=== PATIENT | male | born 1990 | race Caucasian/White ===

== ENCOUNTER 2023-10-16 01:01 | Inpatient (IN) | payer SELFPAY ==
[2023-10-16] MEDS ORDERED: diazePAM CARPU-JECT 10 MG/2 ML DISP.SYRIN ONE ×2 (02:38→03:00)
[2023-10-16] MEDS: diazePAM CARPU-JECT 10 MG/2 ML DISP.SYRIN IVPUSH ONE ×2 (02:38→02:59)
[2023-10-16 02:42] LABS: HEMATOCRIT 39.9 % (35.4-49); HEMOGLOBIN 13.8 GM/dL (11.7-16.9); MCH 34.6 pg (25.7-33.7); MCHC 34.7 g/dl (32.0-35.9); MEAN CELL VOLUME 99.7 fl (80-96); PLATELET COUNT 157 10^3/uL (134-434); RDW 15.7 % (11.9-15.9)
[2023-10-16 02:54] LABS: INR 0.95 (0.83-1.09); PROTHROMBIN TIME (PATIENT) 10.9 SEC (9.7-13.0)
[2023-10-16 02:56] LABS: ACTIVATED PTT 24.9 SECONDS (25.2-36.5)
[2023-10-16 03:00] LABS: POTASSIUM 3.2 mmol/L (3.5-5.1)
[2023-10-16 03:02] LABS: CALCIUM 9.4 mg/dL (8.5-10.1)
[2023-10-16 03:03] LABS: ALBUMIN 4.5 g/dl (3.4-5.0); BLOOD UREA NITROGEN 7.7 mg/dL (7-18)
[2023-10-16 03:06] LABS: CREATININE 0.9 mg/dL (0.55-1.3)
[2023-10-16 03:07] LABS: BILIRUBIN,TOTAL 1.1 mg/dL (0.2-1); TOT PROT 9.2 g/dl (6.4-8.2)
[2023-10-16] MEDS: FOLIC ACID INJECTION - 1 MG, THIAMINE HCL 100 MG, MULTIVIT INJECTION ADULT 10 ML in SOD... IVPB ONE (03:25)
[2023-10-16 03:35] LABS: LACTIC ACID 14.8 mmol/L (0.4-2.0)
[2023-10-16] MEDS: LACTATED RINGERS SOLUTION 1000 ML INFUS.BAG IV ONE (07:36)
[2023-10-16 07:57] LABS: BASO % 0.6 % (0-2.0); HEMATOCRIT 34.3 % (35.4-49); HEMOGLOBIN 12.2 GM/dL (11.7-16.9); LYMPH % 11.6 % (8-40); MCH 34.2 pg (25.7-33.7); MCHC 35.5 g/dl (32.0-35.9); MEAN CELL VOLUME 96.4 fl (80-96); MEAN PLT VOLUME 7.8 fl (7.5-11.1); NEUT % 78.8 % (42.8-82.8); PLATELET COUNT 114 10^3/uL (134-434); RBC 3.56 M/mm3 (4.00-5.60); RDW 15.6 % (11.9-15.9); WHITE BLOOD COUNT 5.8 K/mm3 (4.0-10.0)
[2023-10-16] MEDS: THIAMINE HCL 200 MG/2 ML VIAL IVPB SCH ×2 (08:08→21:24)
[2023-10-16 08:16] LABS: POTASSIUM 3.3 mmol/L (3.5-5.1)
[2023-10-16 08:18] LABS: CALCIUM 8.5 mg/dL (8.5-10.1)
[2023-10-16 08:19] LABS: ALBUMIN 3.7 g/dl (3.4-5.0); BLOOD UREA NITROGEN 5.2 mg/dL (7-18)
[2023-10-16 08:22] LABS: CREATININE 0.4 mg/dL (0.55-1.3)
[2023-10-16 08:23] LABS: BILIRUBIN,TOTAL 1.2 mg/dL (0.2-1); TOT PROT 7.4 g/dl (6.4-8.2)
[2023-10-16 08:53] LABS: METHADONE, UR NEGATIVE (NEGATIVE); OPIATES, URI NEGATIVE (NEGATIVE); URINE BARBITURATES NEGATIVE (NEGATIVE)
[2023-10-16 08:54] LABS: PHENCYCLIDINE,URINE NEGATIVE (NEGATIVE)
[2023-10-16 08:56] LABS: COCAINE, UR NEGATIVE (NEGATIVE); URINE AMPHETAMINES NEGATIVE (NEGATIVE); URINE BENZODIAZEPINES POSITIVE (NEGATIVE)
[2023-10-16] MEDS: KCL 10 MEQ IVPB 10 MEQ/100 ML INFUS.BAG IVPB SCH (09:05)
[2023-10-16] MEDS: HEPARIN NA (PORCINE) 5,000 UNITS/ML 1ML VIAL SQ SCH ×2 (10:00→21:24)
[2023-10-16 10:57] VITALS: BMI 19.9
[2023-10-16] MEDS ORDERED: ALBUTEROL SO4 2.5/IPRATROPIUM 0.5 INH SOL 3 ML VIAL.NEB. NEB PRN (11:32)
[2023-10-16 14:56] LABS: ALBUMIN 3.8 g/dl (3.4-5.0)
[2023-10-16 14:59] LABS: BILIRUBIN,DIRECT 0.5 mg/dL (0.0-0.2)
[2023-10-16 15:01] LABS: BILIRUBIN,TOTAL 1.3 mg/dL (0.2-1); TOT PROT 7.7 g/dl (6.4-8.2)
[2023-10-16] MEDS ORDERED: LORazepam 1 MG TABLET PO PRN (15:10)
[2023-10-16] MEDS: POTASSIUM CHLORIDE ORAL LIQUID 20 MEQ/15 ML PO ONE (16:25)
[2023-10-16] MEDS: LORazepam 1 MG TABLET PO ONE (16:27)
[2023-10-16] MEDS: MUPIROCIN 2% TOPICAL OINTMENT FOR DECOLONIZATION NS SCH (16:28)
[2023-10-16] MEDS ORDERED: LORazepam 0.5 MG TABLET ONE (17:18)
[2023-10-16] MEDS: LORazepam 1 MG TABLET PO SCH (17:25)
[2023-10-16] MEDS ORDERED: MUPIROCIN 2% TOPICAL OINTMENT FOR DECOLONIZATION NS SCH (22:00)
[2023-10-16] MEDS ORDERED: CHLORHEXIDINE GLUCONATE 4% CLEANSER FOR DECOLONIZATION TP SCH (22:00)
[2023-10-17 05:53] LABS: INR 0.92 (0.83-1.09); PROTHROMBIN TIME (PATIENT) 10.4 SEC (9.7-13.0)
[2023-10-17 05:56] LABS: ACTIVATED PTT 29.6 SECONDS (25.2-36.5)
[2023-10-17 09:27] LABS: HEMATOCRIT 37.4 % (35.4-49); HEMOGLOBIN 12.9 GM/dL (11.7-16.9); MCH 33.8 pg (25.7-33.7); MCHC 34.4 g/dl (32.0-35.9); MEAN CELL VOLUME 98.1 fl (80-96); MEAN PLT VOLUME 8.9 fl (7.5-11.1); PLATELET COUNT 123 10^3/uL (134-434); RBC 3.81 M/mm3 (4.00-5.60); RDW 15.5 % (11.9-15.9); WHITE BLOOD COUNT 4.2 K/mm3 (4.0-10.0)
[2023-10-17 09:34] LABS: BASO % 0.8 % (0-2.0); EOS % 1.4 % (0-4.5); HEMATOCRIT 37.1 % (35.4-49); HEMOGLOBIN 12.7 GM/dL (11.7-16.9); LYMPH % 16.5 % (8-40); MCH 33.8 pg (25.7-33.7); MCHC 34.3 g/dl (32.0-35.9); MEAN CELL VOLUME 98.5 fl (80-96); MEAN PLT VOLUME 8.8 fl (7.5-11.1); MONO % 10.2 % (3.8-10.2); NEUT % 71.1 % (42.8-82.8); PLATELET COUNT 125 10^3/uL (134-434); RBC 3.76 M/mm3 (4.00-5.60); RDW 15.3 % (11.9-15.9); WHITE BLOOD COUNT 4.5 K/mm3 (4.0-10.0)
[2023-10-17 09:46] LABS: POTASSIUM 3.4 mmol/L (3.5-5.1)
[2023-10-17 10:01] LABS: ALBUMIN 3.7 g/dl (3.4-5.0); CALCIUM 8.7 mg/dL (8.5-10.1)
[2023-10-17 10:02] LABS: BLOOD UREA NITROGEN 11.7 mg/dL (7-18); MAGNESIUM 2.3 mg/dL (1.8-2.4)
[2023-10-17 10:05] LABS: CREATININE 0.5 mg/dL (0.55-1.3); PHOSPHOROUS 3.2 mg/dL (2.5-4.9)
[2023-10-17 10:06] LABS: BILIRUBIN,TOTAL 1.3 mg/dL (0.2-1); TOT PROT 7.7 g/dl (6.4-8.2)
[2023-10-17] MEDS: POTASSIUM CHLORIDE ORAL LIQUID 20 MEQ/15 ML PO ONE (18:18)
[2023-10-18] MEDS: LORazepam 1 MG TABLET PO SCH (05:07)
[2023-10-18 06:44] VITALS: RESP 18
[2023-10-18 11:00] LABS: BASO % 0.8 % (0-2.0); EOS % 1.8 % (0-4.5); HEMATOCRIT 35.2 % (35.4-49); HEMOGLOBIN 12.5 GM/dL (11.7-16.9); LYMPH % 15.9 % (8-40); MCH 34.4 pg (25.7-33.7); MCHC 35.5 g/dl (32.0-35.9); MEAN CELL VOLUME 96.8 fl (80-96); MEAN PLT VOLUME 8.6 fl (7.5-11.1); MONO % 11.9 % (3.8-10.2); NEUT % 69.6 % (42.8-82.8); PLATELET COUNT 146 10^3/uL (134-434); RBC 3.63 M/mm3 (4.00-5.60); RDW 15.3 % (11.9-15.9); WHITE BLOOD COUNT 4.6 K/mm3 (4.0-10.0)
[2023-10-18 11:21] LABS: POTASSIUM 3.2 mmol/L (3.5-5.1)
[2023-10-18 11:28] LABS: CALCIUM 8.7 mg/dL (8.5-10.1)
[2023-10-18 11:29] LABS: ALBUMIN 3.4 g/dl (3.4-5.0); BLOOD UREA NITROGEN 8.4 mg/dL (7-18); MAGNESIUM 2.1 mg/dL (1.8-2.4)
[2023-10-18 11:32] LABS: CREATININE 0.5 mg/dL (0.55-1.3); PHOSPHOROUS 3.8 mg/dL (2.5-4.9)
[2023-10-18 11:34] LABS: TOT PROT 7.2 g/dl (6.4-8.2)
[2023-10-18] MEDS: POTASSIUM CHLORIDE TABS 20 MEQ TABLET.ER (FP) PO ONE (13:28)
[2023-10-19] MEDS ORDERED: LORazepam 0.5 MG TABLET PO PRN
[2023-10-19] MEDS: LORazepam 0.5 MG TABLET PO SCH (05:25)
[2023-10-19 07:58] LABS: POTASSIUM 3.5 mmol/L (3.5-5.1)
[2023-10-19 08:00] LABS: BLOOD UREA NITROGEN 7.8 mg/dL (7-18); CALCIUM 9.1 mg/dL (8.5-10.1)
[2023-10-19 08:04] LABS: CREATININE 0.5 mg/dL (0.55-1.3); PHOSPHOROUS 4.9 mg/dL (2.5-4.9)
[2023-10-19] MEDS: ENOXAPARIN NA (PORCINE) 40 MG/0.4 ML DISP.SYRIN SQ SCH (10:51)
[2023-10-19 15:14] VITALS: BP 108/85; PULSE 78; TEMP 98.4
[2023-10-20] MEDS ORDERED: LORazepam 0.5 MG TABLET PO ONE (05:00)
== END 2023-10-19 15:34 | disposition home or self-care (01) | DRG 775 ==
LOC: JER 01:01 → JICU 04:42 → J5S 20:02
PROVIDERS: ADMIT Internal Medicine Pulmonary Disease
PROC: HZ2ZZZZ Detoxification Services for Substance Abuse Treatment (ICD-10-PCS; principal; 2023-10-16)
DX: F10.239 Alcohol dependence with withdrawal, unspecified (principal); E87.20 Acidosis, unspecified; R74.01 Elevation of levels of liver transaminase levels; E87.6 Hypokalemia; G40.89 Other seizures
CPT/HCPCS: 36415; 70450-TC; 76705-TC; 80048; 80053; 80076; 80307; 82962; 83036; 83605; 83690; 83735; 84100; 84484; 85025; 85027; 85610; 85730; 86850; 86900; 86901; 87635; 93005; 93010; 99285-25; J1644